=== PATIENT | male | born 1995 | race Two or more races ===

== ENCOUNTER 2023-05-03 21:11 | Emergency (ER) | payer OTHER ==
[~2023-05-03] VITALS: Ht 170.2 cm; Wt 68.0 kg
[2023-05-03] MEDS ORDERED: PEPCID AC10 MG (21:24)
[2023-05-03] MEDS ORDERED: ATORVASTATIN CA10 MG PO (21:24)
[2023-05-04] MEDS ORDERED: INTESTINEX680 M1 PO (03:04)
[2023-05-04] MEDS ORDERED: PEPCID AC20 MG PO (03:04)
[2023-05-04] MEDS ORDERED: DICY20TA PO (03:04)
== END 2023-05-04 03:08 | disposition home or self-care (01) ==
LOC: ER 21:11
DX: K52.9 Noninfective gastroenteritis and colitis, unspecified (principal)